=== PATIENT | male | born 1995 | race Caucasian/White ===

== ENCOUNTER 2019-10-06 23:41 | Emergency (ER) | payer BC, OTHER, SELFPAY ==
[~2019-10-06] VITALS: Ht 177.8 cm; Wt 87.3 kg
[~2019-10-06 23:41] MED LIST: ONDA8TAB9 PO; RANI-648 PO
[2019-10-07] MEDS ORDERED: LIDOcaine 1% W/epiNEPHrine 1:200,000 10ml vial IJ ONE
[2019-10-07] MEDS ORDERED: TETanus/Pertussis (Acell)/Diphther VAC/PF (Tdap-Adult) 0.5ml syringe IMVAC ONE
[2019-10-07 01:04] VITALS: BP 127/79
== END 2019-10-07 01:05 | disposition home or self-care (01) ==
LOC: ER 23:41
DX: S51.811A Laceration without foreign body of right forearm, initial encounter (principal); Z79.899 Other long term (current) drug therapy; X58.XXXA Exposure to other specified factors, initial encounter; Y93.89 Activity, other specified; Y92.89 Other specified places as the place of occurrence of the external cause; Y99.8 Other external cause status
CPT/HCPCS: 12002; 90471; 90715; 99283

== ENCOUNTER 2022-03-27 23:28 | Emergency (ER) | payer BC | END 2022-03-28 03:33 | disposition left against medical advice (07) | LOC: ER 23:29 | DX: F10.90 Alcohol use, unspecified, uncomplicated (principal); Z53.21 Procedure and treatment not carried out due to patient leaving prior to being seen by health care provider; Y90.9 Presence of alcohol in blood, level not specified ==